=== PATIENT | male | born 1975 | race Caucasian/White ===

== ENCOUNTER 2016-11-02 18:08 | Observation (INO) | payer OTHER ==
[~2016-11-02] VITALS: Ht 182.9 cm; Wt 140.0 kg
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
[2016-11-02 18:39] LABS: BASOPHIL # 0.1 K/uL (0.0-0.2); BASOPHIL % 0.4 %; EOSINOPHIL # 0.3 K/uL (0.0-0.5); EOSINOPHIL % 2.1 %; HEMATOCRIT 47.6 % (37.0-53.0); HEMOGLOBIN 15.5 g/dL (12.0-17.0); IMMATURE GRANULOCYTE # 0.1 K/uL (0.0-0.3); IMMATURE GRANULOCYTE % 1.1 %; LYMPHOCYTE # 3.2 K/uL (0.8-4.0); LYMPHOCYTE % 25.3 %; MCH 26.6 pg (27.0-34.0); MCHC 32.6 gm/dL (32.0-36.5); MCV 81.8 fl (83.0-98.0); MONOCYTE # 0.8 K/uL (0.0-1.0); MONOCYTE % 6.5 %; MPV 9.3 fl (9.4-12.4); NEUTROPHIL # (ANC) 8.2 K/uL (1.4-9.0); NEUTROPHIL % 64.6 %; NRBC % 0 /100WBC (0-0.00); PLATELET COUNT 292 K/uL (150-450); RBC 5.82 M/uL (4.00-6.00); RDW-CV 12.7 % (11.9-14.6); WBC 12.6 K/uL (4.0-11.0)
[2016-11-02 18:57] LABS: ALBUMIN 4.2 gm/dL (3.5-5.0); ALK PHOS 80 IU/L (33-138); ALT 224 IU/L (12-78); ANION GAP 11.7 (10.0-19.0); AST 194 IU/L (10-40); BLOOD UREA NITROGEN 20 mg/dL (6-24); CALCIUM 8.4 mg/dL (8.5-10.5); CHLORIDE 106 mMol/L (96-110); CO2 27 mMol/L (22-32); CPK 278 IU/L (35-332); CREATININE 1.2 mg/dL (0.6-1.3); ESTIMATED GFR (MDRD EQUATION) > 60; POTASSIUM 3.7 mMol/L (3.7-5.1); SODIUM 141 mMol/L (135-145); TOTAL BILIRUBIN 0.4 mg/dL (0.0-1.5); TOTAL PROTEIN 7.7 g/dL (6.0-8.4)
[2016-11-02 21:31] LABS: BILIRUBIN URINE NEGATIVE (NEGATIVE); BLOOD URINE 150 /UL (NEGATIVE); COLOR URINE STRAW (YELLOW); GLUCOSE URINE NEGATIVE (NEGATIVE); KETONE URINE NEGATIVE (NEGATIVE); LEUKOCYTES URINE NEGATIVE /UL (NEGATIVE); NITRITE URINE NEGATIVE (NEGATIVE); PROTEIN URINE NEGATIVE (NEGATIVE); TURBIDITY URINE CLEAR (CLEAR); UROBILINOGEN URINE NORMAL (NORMAL)
[2016-11-02 21:40] LABS: RBC URINE 20-50 #/HPF (NEGATIVE)
[2016-11-02 21:41] LABS: BACTERIA URINE NEGATIVE (NEGATIVE); EPITHELIAL URINE NEGATIVE #/HPF (NEGATIVE); GRANULAR CASTS URINE RARE #/LPF (NEGATIVE); HYALINE CAST URINE RARE #/LPF (NEGATIVE)
[2016-11-02] MEDS ORDERED: ZYLOPRIM100 MG PO (21:46)
[2016-11-02] MEDS ORDERED: CELEBREX200 MG PO (21:47)
--- NOTE | 2016-11-03 04:49 | NUR ---
Significant events: Pt A/Ox3. VSS. C/O soreness to upper abdomen but only with movement/coughing. Pt was cleared to take off neck brace. Has L) prosthetic leg. Off bedrest. IV D5 1/2NS with 20KCL at 125cc/hr. Voids per urinal. Will have repeat CT of abdomen/pelvis tomorrow to check for bleeding and then possibly home. Clear liquid diet.
[2016-11-03 06:18] LABS: BASOPHIL # 0.1 K/uL (0.0-0.2); BASOPHIL % 0.3 %; EOSINOPHIL # 0.1 K/uL (0.0-0.5); EOSINOPHIL % 0.3 %; HEMATOCRIT 43.6 % (37.0-53.0); HEMOGLOBIN 14.2 g/dL (12.0-17.0); IMMATURE GRANULOCYTE # 0.1 K/uL (0.0-0.3); IMMATURE GRANULOCYTE % 0.3 %; LYMPHOCYTE # 1.8 K/uL (0.8-4.0); LYMPHOCYTE % 11.9 %; MCHC 32.6 gm/dL (32.0-36.5); MCV 82.9 fl (83.0-98.0); MONOCYTE # 1.2 K/uL (0.0-1.0); MONOCYTE % 8.1 %; MPV 9.4 fl (9.4-12.4); NEUTROPHIL # (ANC) 11.7 K/uL (1.4-9.0); NEUTROPHIL % 79.1 %; NRBC % 0 /100WBC (0-0.00); PLATELET COUNT 243 K/uL (150-450); RBC 5.26 M/uL (4.00-6.00); RDW-CV 13.1 % (11.9-14.6); WBC 14.8 K/uL (4.0-11.0)
[2016-11-03 06:24] LABS: PROTIME 10.2 SECONDS (9.6-11.1); PTT 25 SECONDS (25-32)
[2016-11-03 06:38] LABS: ALBUMIN 3.6 gm/dL (3.5-5.0); ALK PHOS 58 IU/L (33-138); ALT 160 IU/L (12-78); ANION GAP 13.7 (10.0-19.0); AST 89 IU/L (10-40); BLOOD UREA NITROGEN 16 mg/dL (6-24); CALCIUM 8.2 mg/dL (8.5-10.5); CHLORIDE 107 mMol/L (96-110); CO2 25 mMol/L (22-32); CREATININE 0.8 mg/dL (0.6-1.3); ESTIMATED GFR (MDRD EQUATION) > 60; POTASSIUM 3.7 mMol/L (3.7-5.1); SODIUM 142 mMol/L (135-145); TOTAL BILIRUBIN 0.4 mg/dL (0.0-1.5); TOTAL PROTEIN 6.5 g/dL (6.0-8.4)
--- NOTE | 2016-11-03 13:49 | NUR ---
Introduced self and care management services to patient. Lives in [place] with , plans on going home on discharge, hoping tomorrow. Denies needs. Will follow.
--- NOTE | 2016-11-03 16:50 | NUR ---
PATIENT DOING WELL. JASPER TAB ONE TAB AT 1515. CSM ADEQUATE. MULTIPLE ABRAHSIONS TO HANDS, ARMS. RIGHT ANKLE EDEMA. C/O SORENESS TO MUSCLE TO CHEST. AMBULATED UP IN [place].POSSIBLE HOME TOMORROW.
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
[2016-11-04 06:50] LABS: BASOPHIL # 0.1 K/uL (0.0-0.2); BASOPHIL % 0.6 %; EOSINOPHIL # 0.3 K/uL (0.0-0.5); EOSINOPHIL % 3.4 %; HEMATOCRIT 46.4 % (37.0-53.0); IMMATURE GRANULOCYTE # 0.1 K/uL (0.0-0.3); IMMATURE GRANULOCYTE % 0.5 %; LYMPHOCYTE # 2.3 K/uL (0.8-4.0); LYMPHOCYTE % 24.6 %; MCH 27.2 pg (27.0-34.0); MCHC 32.3 gm/dL (32.0-36.5); MCV 84.2 fl (83.0-98.0); MONOCYTE # 0.9 K/uL (0.0-1.0); MONOCYTE % 9.2 %; MPV 9.1 fl (9.4-12.4); NEUTROPHIL # (ANC) 5.7 K/uL (1.4-9.0); NEUTROPHIL % 61.7 %; NRBC % 0 /100WBC (0-0.00); PLATELET COUNT 227 K/uL (150-450); RBC 5.51 M/uL (4.00-6.00); RDW-CV 13.1 % (11.9-14.6); WBC 9.2 K/uL (4.0-11.0)
[2016-11-04 06:58] LABS: INR - (THERAPEUTIC) 0.9 (0.9-1.1); PROTIME 9.6 SECONDS (9.6-11.1)
[2016-11-04 07:06] LABS: ALBUMIN 3.7 gm/dL (3.5-5.0); ALK PHOS 66 IU/L (33-138); ALT 113 IU/L (12-78); ANION GAP 12.1 (10.0-19.0); AST 44 IU/L (10-40); BLOOD UREA NITROGEN 12 mg/dL (6-24); CHLORIDE 106 mMol/L (96-110); CO2 27 mMol/L (22-32); CREATININE 0.9 mg/dL (0.6-1.3); ESTIMATED GFR (MDRD EQUATION) > 60; POTASSIUM 4.1 mMol/L (3.7-5.1); SODIUM 141 mMol/L (135-145); TOTAL BILIRUBIN 0.3 mg/dL (0.0-1.5); TOTAL PROTEIN 7.1 g/dL (6.0-8.4)
[2016-11-04] MEDS ORDERED: NORCO 5-325 TA1 EACH PO (09:14)
--- NOTE | 2016-11-04 10:16 | NUR ---
PATIENT DIMSISSED TO HOME. CRITERIA MET TO MEET GOALS. CSM ADEQUATE. NORCO FOR PAIN MEDS AND RELIEVING PAIN. RX SLIP, RETURN APPT CARD, INSTRUCITONS FROM DISMISSAL ALL UNDERSTOOD BY PATIENT, INSTRUCTIONS TO FOLLOW UP WITH FAMILY DR REGARDING BLOOD PRESSURE, DISMISSED TO HOME WITH .
== END 2016-11-04 10:08 | disposition disaster alternative care site (69) ==
LOC: GACC 18:08 → GPCU 20:54 → G3N 20:54
PROVIDERS: Emergency Medicine; ADMIT Surgery
DX: S36.898A Other injury of other intra-abdominal organs, initial encounter (principal); M10.9 Gout, unspecified; M54.89 Other dorsalgia; M54.2 Cervicalgia; W17.89XA Other fall from one level to another, initial encounter; Y99.0 Civilian activity done for income or pay; Z89.512 Acquired absence of left leg below knee
CPT/HCPCS: C9113; G0378; J2270; J2405; J3480; J7030; Q9967